=== PATIENT | male | born 1965 | race Caucasian/White ===

== ENCOUNTER → 2024-08-28 07:57 | Outpatient (REF) | payer OTHER, SELFPAY | LOC: HWRAD 07:57 | PROVIDERS: ATTENDING PHYSICIAN Family Medicine | DX: Z87.891 Personal history of nicotine dependence (principal) | CPT/HCPCS: 71271 ==

== ENCOUNTER → 2025-02-11 06:58 | Outpatient (REF) | payer SELFPAY | LOC: HWRAD 06:58 | PROVIDERS: ATTENDING PHYSICIAN Internal Medicine Cardiovascular Disease; FAMILY PHYSICIAN Family Medicine | DX: E78.2 Mixed hyperlipidemia (principal) | CPT/HCPCS: 75571 ==

== ENCOUNTER → 2025-02-27 07:14 | Outpatient (REF) | payer OTHER, SELFPAY | LOC: HWRCS 07:14 | PROVIDERS: ATTENDING PHYSICIAN Internal Medicine Cardiovascular Disease; FAMILY PHYSICIAN Family Medicine | DX: I77.810 Thoracic aortic ectasia (principal); I49.3 Ventricular premature depolarization | CPT/HCPCS: 93306 ==